=== PATIENT | female | born 1960 | race Caucasian/White ===

== ENCOUNTER 2023-10-30 14:22 | Emergency (ER) | payer MEDICAID, SELFPAY ==
[2023-10-30 14:43] VITALS: BP 119/65; PULSE 81; RESP 18; TEMP 36.8; O2SAT 94; BMI 21.2
--- NOTE | 2023-10-30 16:54 | ED_ITS ---
HPI - Dental/Oral <Melva Taveras PA-C - Last Filed: 10/30/23 17:48> General Chief complaint: Dental/Oral Stated complaint: tooth aches poss abcess Time Seen by Provider: 10/30/23 14:48 Source: patient Mode of arrival: Ambulatory History of Present Illness HPI Narrative: 63-year-old female with no ongoing medical problems here for a left-sided toothache that has been ongoing for 5 days or so. States she has a broken tooth on the bottom left as well as 1 on the top left and she feels like she is developing an infection. Feels pain in her jaw and states it feels a little swollen. No fevers. She is able to move her neck and swallow normally. She has a dental appointment scheduled for November 08 but they recommended that she get a prescription for antibiotics in the meantime. She has been taking ibuprofen 800 mg twice a day with some relief. Related Data Previous Rx's Medication Instructions Recorded amoxicillin 875 mg-potassium 1 tab PO Q12H #20 tabs 10/30/23 clavulanate 125 mg tablet Allergies Allergy/AdvReac Type Severity Reaction Status Date / Time No Known Drug Allergies Allergy Verified 10/30/23 14:43 Review of Systems <Melva Taveras PA-C - Last Filed: 10/30/23 17:48> Review of Systems ROS Unobtainable: All systems reviewed & are unremarkable except as noted in HPI and below Patient History <Melva Taveras PA-C - Last Filed: 10/30/23 17:48> Social History Smoking Status: Never smoker Smoking Status: Never smoker Substance Use Type: does not use Exam <KOFFI Huang Last Filed: 10/30/23 17:48> Narrative Exam Narrative: GENERAL: Well-developed, well-nourished, appears stated age. In no acute distress HEAD: Atraumatic. Normocephalic. EYES: Pupils equal round and reactive. Extraocular motions intact. No scleral icterus. No injection or drainage. ENT: Nose without bleeding, purulent drainage. Airway patent. Bottom left and top left molar broken with significant decay. No surrounding erythema or edema of the gumline or buccal mucosa. No significant swelling of the jaw. No trismus. No submandibular or sublingual tenderness NECK: Trachea midline. Non tender. Full range of motion RESPIRATORY: Respiratory rate and effort normal EXTREMITIES: No edema or joint tenderness. NEURO: AOx3. SKIN: No rash or erythema of visible areas Initial Vital Signs Initial Vital Signs: Vital Signs Temperature 98.3 F 10/30/23 14:43 Pulse Rate 81 10/30/23 14:43 Respiratory Rate 18 10/30/23 14:43 Blood Pressure 119/65 10/30/23 14:43 Pulse Oximetry 94 10/30/23 14:43 Oxygen Delivery Method Room Air 10/30/23 14:43 <Eusebia Pretty MD - Last Filed: 10/31/23 07:26> Initial Vital Signs Initial Vital Signs: Vital Signs Temperature 98.3 F 10/30/23 14:43 Pulse Rate 81 10/30/23 14:43 Respiratory Rate 18 10/30/23 14:43 Blood Pressure 119/65 10/30/23 14:43 Pulse Oximetry 94 10/30/23 14:43 Oxygen Delivery Method Room Air 10/30/23 14:43 Course <Melva Taveras PA-C - Last Filed: 10/30/23 17:48> Vital Signs Vital signs: Vital Signs - 8 hr 10/30/23 14:43 Temperature 98.3 F Pulse Rate 81 Respiratory Rate 18 Blood Pressure 119/65 Pulse Oximetry 94 Oxygen Delivery Method Room Air <Eusebia Pretty MD - Last Filed: 10/31/23 07:26> Vital Signs Vital signs: Vital Signs - 8 hr 10/30/23 14:43 Temperature 98.3 F Pulse Rate 81 Respiratory Rate 18 Blood Pressure 119/65 Pulse Oximetry 94 Oxygen Delivery Method Room Air MDM - Dental/Oral <Melva Taveras PA-C - Last Filed: 10/30/23 17:48> MDM Narrative Medical decision making narrative: This patient has some broken and decayed molars on the left side with no surrounding erythema, edema or other signs of infection or abscess of the gum line and surrounding tissue. She has full range of motion of her neck with no pain or tenderness and no trismus. She has no signs or symptoms of deep space infection. Afebrile, nontoxic appearing. Tolerating her own secretions and food and beverages without much difficulty. Her dentist appointment is on November 08 and her dentist recommended she start a course of antibiotics in the meantime so I will prescribe Augmentin today. Recommend patient take ibuprofen 600 mg Q 6 hours and Tylenol in between if needed. Discussed other pain relief modalities such as ice packs to the jaw. We discussed signs and symptoms of worsening infection and went to return to the ED. no imaging or further workup needed at this time. Patient is stable for discharge with oral antibiotics. Discharge Plan Departure Patient Disposition: Home Clinical Impression: Toothache Instructions: DI for Dental Pain Activity Restrictions/Additional Instructions: You were seen today for a toothache. You do have multiple broken/decaying teeth that require evaluation by a dentist. Since you already have an appointment with your dentist scheduled, antibiotics will be prescribed in the meantime to treat/prevent infection. For pain relief we recommend ibuprofen 600 mg every 6- 8 hours and you can use extra-strength Tylenol 500 mg in between doses of ibuprofen if needed. You may also use ice packs on the jaw area to relieve her pain. If you develop any difficulty opening your mouth, drooling, severe neck pain, or fevers please return to the emergency department. Otherwise follow up with her dentist as scheduled. Prescriptions: New amoxicillin-pot clavulanate 875-125 mg tablet 1 tab PO Q12H Qty: 20 0RF Stand Alone Forms: Patient Portal/API ED Sign-out <Eusebia Pretty MD - Last Filed: 10/31/23 07:26> Cosign ED Attending Jhony Attestation: I was immediately available in the department for consultation throughout this patient's visit. Eusebia Pretty MD
[2023-10-30 17:07] VITALS: BP 105/71; PULSE 66; RESP 18; TEMP 36.7; O2SAT 97
== END 2023-10-30 17:27 | disposition home or self-care (01) ==
PROVIDERS: Emergency Provider Physician Assistant
DX: K08.89 Other specified disorders of teeth and supporting structures (principal)
CPT/HCPCS: 99281